=== PATIENT | female | born 1985 | race Caucasian/White ===

== ENCOUNTER 2016-03-26 09:34 | Emergency (ER) | payer MEDICAID, OTHER, SELFPAY ==
[~2016-03-26 09:34] MED LIST: AUGM500T34 PO; MOTR200T44 PO; No medications; PERC5TAB6 PO; vicodin 5/325 PO
[2016-03-26] MEDS ORDERED: predniSONE 20 MG TAB As Ordered ONE (10:40)
[2016-03-26] MEDS ORDERED: IPRATROPIUM 0.5MG/ALBUTEROL 2.5MG INH SOL UD 3ML (DUONEB)(J7620) As Ordered ONE (10:58)
--- NOTE | 2016-03-26 12:32 | REP ---
Chest two views HISTORY: Chest pain Comparison: 12/30/2015 The lungs are clear. The heart is normal in size. The pulmonary vasculature is normal in appearance. The bony structure is intact. IMPRESSION: No acute disease. Signed by Prakash Barroso MD 03/26/2016 12:24 P
[2016-03-26] MEDS ORDERED: AZITHROMYCIN 250 MG TAB As Ordered ONE (12:48)
--- NOTE | 2016-03-26 13:02 | EDDOCDS ---
Physician Documentation [facility] Name: Cielo Ríos Age: 30 yrs Sex: Female : 1985 Arrival Date: 03/26/2016 Time: 09:34 Bed PD Private MD: NO PRIMARY PHYSICIAN, . Disposition: 03/26/16 12:48 Discharged to Home/Self Care. Impression: Acute sinusitis, Acute bronchitis. - Condition is Stable. - Discharge Instructions: Sinusitis, Mokg-nj-Gkom, Acute Bronchitis, Mzjo-uj-Zpol. - Prescriptions for Prednisone 20 mg Oral Tablet - take 3 tablet by ORAL route once daily for 5 days; 15 tablet. Claritin 10 mg Oral Tablet - take 1 tablet by ORAL route once daily As needed; 30 tablet. Zithromax 250 mg Oral Tablet - take 1 tablet by ORAL route once daily start tomorrow; 4 tablet. Mucinex 600 mg - take 1 tablet by ORAL route 2 times per day; 30 tablet. Albuterol Sulfate 90 mcg/actuation Inhalation HFA Aerosol Inhaler - inhale 2 puff by INHALATION route every 4 hours As needed; 1 Inhaler. - Medication Reconciliation, Local Pharmacy Hours form. - [facility] ; When: 1 - 2 days; Reason: Recheck today's complaints, Continuance of care. Follow up: Emergency Department; Reason: Worsening of conditions. - Problem is new. - Symptoms have improved. Historical: - Allergies: no known allergies; - Home Meds: 1. Paxil 10 mg Oral tab 1 tab once daily 2. Xanax 0.25 mg Oral tab prn - PMHx: Anxiety; Endometriosis; - PSHx: Hysterectomy; Appendectomy; Laparoscopy; - Social history: Smoking status: Patient uses tobacco products, light tobacco smoker. No barriers to communication noted, The patient speaks fluent Yakut, Speaks appropriately for age. - Family history: Not pertinent. - : The pt / caregiver states he / she is not on anticoagulants. Home medication list is obtained from the patient. - Exposure Risk Screening:: None identified. 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 6 in. (167.64 cm); Pain 7/10; 12:52 BP 140 / 80; Pulse 81; Resp 18; Temp 98.3; Pulse Ox 97% ; Pain 5/10; cmb 09:38 Body Mass Index 29.05 (81.65 kg, 167.64 cm) elp MDM: 10:39 Albuterol-Ipratropium 1 neb Nebulizer every 20 minutes x3 ordered. ef1 10:39 Call Respiratory ordered. ef1 10:39 predniSONE 60 mg PO once; administer with food or milk ordered. ef1 10:40 Call Respiratory complete. [facility] 10:40 Chest, 2 View (pa\E\lat) Ordered. EDMS 10:45 Financial registration complete. 11:02 [facility] Payment Agreement was scanned into [email or web address] and attached to record. lg 12:46 azithromycin 500 mg PO once ordered. ef1 12:46 Recheck B/P ordered. ef1 Administered Medications: 10:42 Drug: predniSONE 60 mg [prednisone 20 mg tablet (3 tabs)] Route: PO; [facility] 11:03 Drug: Albuterol-Ipratropium 1 neb [ipratropium-albuterol 0.5 mg-3 mg(2.5 mg base)/3 mL cs15 nebulization soln (1 neb)] Route: Nebulizer; 11:40 Drug: Albuterol-Ipratropium 1 neb [ipratropium-albuterol 0.5 mg-3 mg(2.5 mg base)/3 mL cs15 nebulization soln (1 neb)] Route: Nebulizer; 11:41 Drug: Albuterol-Ipratropium 1 neb [ipratropium-albuterol 0.5 mg-3 mg(2.5 mg base)/3 mL cs15 nebulization soln (1 neb)] Route: Nebulizer; 12:50 Drug: azithromycin 500 mg [azithromycin 250 mg tablet (2 tabs)] Route: PO; [facility] Signatures: Dispatcher [employer] EDMS Jacqueline Laird RN RN Yony Marcus, Eliu Reg lg Ras Espinosa RN RN mlb1 Caitlyn Alvarez, PA-C PA-C ef1 Nathaniel Ojeda RT cs15 The chart was reviewed and I authenticate all verbal orders and agree with the evaluation and treatment provided.Attachments: 11:02 [facility] Payment Agreement lg MTDD
--- NOTE | 2016-03-26 13:02 | EDDOCDS ---
Nurse's Notes [facility] Name: Cielo Ríos Age: 30 yrs Sex: Female : 1985 Arrival Date: 03/26/2016 Time: 09:34 Bed PD Private MD: NO PRIMARY PHYSICIAN, . Diagnosis: Acute sinusitis;Acute bronchitis Presentation: 03/26 09:49 Presenting complaint: Patient states: Bilateral chest pain began a week ago, worse with mlb1 deep breathing and "lying down". Aspirin was not taken prior to arrival. Adult Sepsis Screening: The patient does not have new or worsening altered mentation. Patient's respiratory rate is less than 22. Systolic blood pressure is greater than 100. Patient has a qSOFA score of 0- Negative Sepsis Screen. Suicide/Homicide risk assessment- the patient denies having any suicidal and/or homicidal ideations and does not present with any other emotional, behavioral or mental health complaints. 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 Transition of care: patient was not received from another setting of care. 09:49 Acuity: MONICA Level 3 mlb1 09:49 Method Of Arrival: Walkin/Carried/Asstd mlb1 Triage Assessment: 09:51 General: Appears in no apparent distress, Behavior is anxious, appropriate for age, mlb1 cooperative. Pain: Location: chest Pain currently is 7 out of 10 on a pain scale. HIV screening NA for this visit Offered previously. 13:00 Cardiovascular: Chest pain is described as diffuse, radiates Does not radiate. episodes mcp are intermittent began week ago. 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 Paxil 10 mg Oral tab 1 tab once daily 2. Xanax 0.25 mg Oral tab prn - PMHx: Anxiety; Endometriosis; - PSHx: Hysterectomy; Appendectomy; Laparoscopy; - Social history: Smoking status: Patient uses tobacco products, light tobacco smoker. No barriers to communication noted, The patient speaks fluent Wolof, Speaks appropriately for age. - Family history: Not pertinent. - : The pt / caregiver states he / she is not on anticoagulants. Home medication list is obtained from the patient. - Exposure Risk Screening:: None identified. Screenin:58 Screening information is obtained from the patient. Fall risk: No risks identified. mcp Assistance ADL's: requires no assistance with activities of daily living. Abuse/DV Screen: The patient / caregiver reports he/she is: not in a situation that causes fear, pain or injury. Nutritional screening: No deficits noted. Advance Directives: There is no active DNR order. home support is adequate. Assessment: 12:57 General: Appears in no apparent distress, Behavior is cooperative. Pain: Location: mcp chest with cough or deep breath Pain currently is 4 out of 10 on a pain scale. Neurological: No deficits noted. Cardiovascular: Rhythm is regular. Respiratory: Airway is patent Respiratory effort is even, unlabored, Reports cough that is persistent pain with respiration. Derm: Skin is pink, warm & dry. Vital Signs: 09:38 BP 163 / 88; Pulse 95; Resp 18; Temp 97.1; Pulse Ox 99% ; Weight 81.65 kg; Height 5 ft. elp 6 in. (167.64 cm); Pain 7/10; 12:52 BP 140 / 80; Pulse 81; Resp 18; Temp 98.3; Pulse Ox 97% ; Pain 5/10; cmb 09:38 Body Mass Index 29.05 (81.65 kg, 167.64 cm) elp Vitals: 09:38 Log In Time: March 26, 2016 at 09:30. [facility] ED Course: 09:37 Patient visited by Marina Simms PCA. elp 09:37 Patient moved to Waiting elp 09:38 Alessandra Diaz is Private Physician. elp 09:38 NO PRIMARY PHYSICIAN, . is Private Physician. elp 09:39 Patient visited by Marina Simms PCA. elp 09:39 Patient moved to Pre RCE elp 09:48 Patient visited by Ras Espinosa, RN. mlb1 09:50 Triage Initiated mlb1 09:51 Patient visited by Ras Espinosa, RN. mlb1 10:04 EKG done. (by ED staff). Reviewed by Sayra Haley MD. nb2 10:05 Patient visited by Vianey Jhaveri. nb2 10:09 Patient moved to Triage 1 mcp 10:29 [facility]ait[facility]varez [facility]. ef1 10:29 Sayra Haley MD is Attending Physician. ef1 10:29 Patient visited by Caitlyn Alvarez PA-C. ef1 10:40 Patient moved to mcp 11:01 Patient name changed from Cielo\\S\\Anthony\\S\\Mikulak\\S\\ to Cielo\\S\\M\\S\\Mikulak. EDMS 11:02 COUNTS INCLUDE 234 BEDS AT THE [facility] Payment Agreement was scanned into [employer] and attached to record. lg 11:13 Patient visited by Caitlyn Alvarez PA-C. ef1 11:32 Patient visited by Caitlyn Alvarez PA-C. ef1 12:17 Patient visited by Caitlyn Alvarez PA-C. ef1 12:43 Chest, 2 View (pa\\E\\lat) Returned. EDMS 12:45 Patient visited by Caitlyn Alvarez PA-C. ef1 12:48 [facility] is Referral Physician. ef1 13:00 No IV's were initiated during this patient's visit. No procedures done that require mcp assistance. 13:01 The patient / caregiver is instructed regarding the plan of care and ED course. Cardiac mcp monitoring not applicable on this patient. Administered Medications: 10:42 Drug: predniSONE 60 mg [prednisone 20 mg tablet (3 tabs)] Route: PO; mcp 11:03 Drug: Albuterol-Ipratropium 1 neb [ipratropium-albuterol 0.5 mg-3 mg(2.5 mg base)/3 mL cs15 nebulization soln (1 neb)] Route: Nebulizer; 11:40 Drug: Albuterol-Ipratropium 1 neb [ipratropium-albuterol 0.5 mg-3 mg(2.5 mg base)/3 mL cs15 nebulization soln (1 neb)] Route: Nebulizer; 11:41 Drug: Albuterol-Ipratropium 1 neb [ipratropium-albuterol 0.5 mg-3 mg(2.5 mg base)/3 mL cs15 nebulization soln (1 neb)] Route: Nebulizer; 12:50 Drug: azithromycin 500 mg [azithromycin 250 mg tablet (2 tabs)] Route: PO; mcp RT: 11:03 Initial Med Neb Given as ordered. Respiratory: Respiratory effort is unlabored, cs15 Respiratory pattern is regular Breath sounds are diminished bilaterally. Reports shortness of breath chest pain that has worsened over the last week. She thinks that maybe her anxiety and induced or worsened the chest pain. She takes no meds for breathing at home. She stated that she had exercise induced asthma as a child. 11:43 Subsequent Med Neb Given as ordered. cs15 11:52 Respiratory: Breath sounds are diminished in left posterior lower lobe. cs15 Order Results: Radiology Order: Chest, 2 View (pa\\E\\lat) Test: Chest, 2 View (pa\\E\\lat) REASON FOR EXAMINATION: Cough;Chest Pain; Chest two views; ; HISTORY: Chest pain; ; Comparison: 12/30/2015; ; The lungs are clear. The heart is normal in size. The pulmonary vasculature is; normal in appearance. The bony structure is intact.; ; IMPRESSION: No acute disease.; ; ; Signed by; Prakash Barroso MD 03/26/2016 12:24 P; Outcome: 12:48 Discharge ordered by Provider. ef1 13:00 Discharge Assessment: patient administered narcotics - no. The following High Risk [facility] Discharge criteria are identified: None. Discharged to home ambulatory, with significant other. Condition: stable. Discharge instructions given to patient, Instructed on discharge instructions, follow up and referral plans. medication usage, Demonstrated understanding of instructions, medications, Pt was receptive of discharge instructions/ teaching. Prescriptions given X 5. No special radiology studies were completed. Property sent home with patient. 13:01 Patient left the ED. [facility] Signatures: Dispatcher [employer] EDMS Jacqueline Laird RN RN mcp Ganter, LoriLee, Ras Felix lg, RN RN mlb1 Caitlyn Alvarez, PA-C PA-C ef1 Aleisha Lopez cmb Marina Simms, SERVICE STATION ATTENDANT SERVICE STATION ATTENDANT elp Nathaniel Ojeda,RT RT cs15 Vianey Jhaveri2 MTDD
--- NOTE | 2016-03-28 14:03 | EDDOCDS ---
Physician Documentation [facility] Name: Cielo Ríos Age: 30 yrs Sex: Female : 1985 Arrival Date: 03/26/2016 Time: 09:34 Bed PD Private MD: NO PRIMARY PHYSICIAN, . Disposition: 03/26/16 12:48 Discharged to Home/Self Care. Impression: Acute sinusitis, Acute bronchitis. - Condition is Stable. - Discharge Instructions: Sinusitis, Pupn-[id number]-Kpgh, Acute Bronchitis, Jddv-eu-Uynb. - Prescriptions for Prednisone 20 mg Oral Tablet - take 3 tablet by ORAL route once daily for 5 days; 15 tablet. Claritin 10 mg Oral Tablet - take 1 tablet by ORAL route once daily As needed; 30 tablet. Zithromax 250 mg Oral Tablet - take 1 tablet by ORAL route once daily start tomorrow; 4 tablet. Mucinex 600 mg - take 1 tablet by ORAL route 2 times per day; 30 tablet. Albuterol Sulfate 90 mcg/actuation Inhalation HFA Aerosol Inhaler - inhale 2 puff by INHALATION route every 4 hours As needed; 1 Inhaler. - Medication Reconciliation, Local Pharmacy Hours form. - [facility] ; When: 1 - 2 days; Reason: Recheck today's complaints, Continuance of care. Follow up: Emergency Department; Reason: Worsening of conditions. - Problem is new. - Symptoms have improved. Historical: - Allergies: no known allergies; - Home Meds: 1. Paxil 10 mg Oral tab 1 tab once daily 2. Xanax 0.25 mg Oral tab prn - PMHx: Anxiety; Endometriosis; - PSHx: Hysterectomy; Appendectomy; Laparoscopy; - Social history: Smoking status: Patient uses tobacco products, light tobacco smoker. No barriers to communication noted, The patient speaks fluent Spanish, Speaks appropriately for age. - Family history: Not pertinent. - : The pt / caregiver states he / she is not on anticoagulants. Home medication list is obtained from the patient. - Exposure Risk Screening:: None identified. 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 6 in. (167.64 cm); Pain 7/10; 12:52 BP 140 / 80; Pulse 81; Resp 18; Temp 98.3; Pulse Ox 97% ; Pain 5/10; cmb 09:38 Body Mass Index 29.05 (81.65 kg, 167.64 cm) elp MDM: 10:39 Albuterol-Ipratropium 1 neb Nebulizer every 20 minutes x3 ordered. ef1 10:39 Call Respiratory ordered. ef1 10:39 predniSONE 60 mg PO once; administer with food or milk ordered. ef1 10:40 Call Respiratory complete. mcp 10:40 Chest, 2 View (pa\E\lat) Ordered. EDMS 10:45 Financial registration complete. lg 11:02 [facility] Payment Agreement was scanned into [employer] and attached to record. lg 12:46 azithromycin 500 mg PO once ordered. ef1 12:46 Recheck B/P ordered. ef1 14:05 T-Sheet-- Draft Copy was scanned into [employer] and attached to record. gb 14:06 ECG/EKG was scanned into [employer] and attached to record. gb 14:06 Radiology Report was scanned into [employer] and attached to record. gb 03/28 10:36 ECG WITH READING ER PHYS ordered. EDMS Administered Medications: 03/26 10:42 Drug: predniSONE 60 mg [prednisone 20 mg tablet (3 tabs)] Route: PO; mcp 11:03 Drug: Albuterol-Ipratropium 1 neb [ipratropium-albuterol 0.5 mg-3 mg(2.5 mg base)/3 mL cs15 nebulization soln (1 neb)] Route: Nebulizer; 11:40 Drug: Albuterol-Ipratropium 1 neb [ipratropium-albuterol 0.5 mg-3 mg(2.5 mg base)/3 mL cs15 nebulization soln (1 neb)] Route: Nebulizer; 11:41 Drug: Albuterol-Ipratropium 1 neb [ipratropium-albuterol 0.5 mg-3 mg(2.5 mg base)/3 mL cs15 nebulization soln (1 neb)] Route: Nebulizer; 12:50 Drug: azithromycin 500 mg [azithromycin 250 mg tablet (2 tabs)] Route: PO; mcp Signatures: Dispatcher [employer] Jacqueline Das, RN RN mcp Amanda Damon, Reg Reg gb Yony Bess, Reg Reg lg Ras Espinosa RN RN mlb1 Caitlyn Alvarez, PA-C PA-C ef1 Nathaniel Ojeda RT cs15 The chart was reviewed and I authenticate all verbal orders and agree with the evaluation and treatment provided.Attachments: 11:02 [facility] Payment Agreement lg 14:05 T-Sheet-- Draft Copy gb 14:06 ECG/EKG gb Chart Complete MTDD
--- NOTE | 2016-03-28 14:03 | EDDOCDS ---
Physician Documentation [facility] Name: Cielo Ríos Age: 30 yrs Sex: Female : 1985 Arrival Date: 03/26/2016 Time: 09:34 Bed PD Private MD: NO PRIMARY PHYSICIAN, . Disposition: 03/26/16 12:48 Discharged to Home/Self Care. Impression: Acute sinusitis, Acute bronchitis. - Condition is Stable. - Discharge Instructions: Sinusitis, [id number]-Eirc, Acute Bronchitis, Tgne-[id number]-Viyc. - Prescriptions for Prednisone 20 mg Oral Tablet - take 3 tablet by ORAL route once daily for 5 days; 15 tablet. Claritin 10 mg Oral Tablet - take 1 tablet by ORAL route once daily As needed; 30 tablet. Zithromax 250 mg Oral Tablet - take 1 tablet by ORAL route once daily start tomorrow; 4 tablet. Mucinex 600 mg - take 1 tablet by ORAL route 2 times per day; 30 tablet. Albuterol Sulfate 90 mcg/actuation Inhalation HFA Aerosol Inhaler - inhale 2 puff by INHALATION route every 4 hours As needed; 1 Inhaler. - Medication Reconciliation, Local Pharmacy Hours form. - [facility] ; When: 1 - 2 days; Reason: Recheck today's complaints, Continuance of care. Follow up: Emergency Department; Reason: Worsening of conditions. - Problem is new. - Symptoms have improved. Historical: - Allergies: no known allergies; - Home Meds: 1. Paxil 10 mg Oral tab 1 tab once daily 2. Xanax 0.25 mg Oral tab prn - PMHx: Anxiety; Endometriosis; - PSHx: Hysterectomy; Appendectomy; Laparoscopy; - Social history: Smoking status: Patient uses tobacco products, light tobacco smoker. No barriers to communication noted, The patient speaks fluent Arabic, Speaks appropriately for age. - Family history: Not pertinent. - : The pt / caregiver states he / she is not on anticoagulants. Home medication list is obtained from the patient. - Exposure Risk Screening:: None identified. 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 6 in. (167.64 cm); Pain 7/10; 12:52 BP 140 / 80; Pulse 81; Resp 18; Temp 98.3; Pulse Ox 97% ; Pain 5/10; cmb 09:38 Body Mass Index 29.05 (81.65 kg, 167.64 cm) elp MDM: 10:39 Albuterol-Ipratropium 1 neb Nebulizer every 20 minutes x3 ordered. ef1 10:39 Call Respiratory ordered. ef1 10:39 predniSONE 60 mg PO once; administer with food or milk ordered. ef1 10:40 Call Respiratory complete. mcp 10:40 Chest, 2 View (pa\E\lat) Ordered. EDMS 10:45 Financial registration complete. lg 11:02 [facility] Payment Agreement was scanned into [employer] and attached to record. lg 12:46 azithromycin 500 mg PO once ordered. ef1 12:46 Recheck B/P ordered. ef1 14:05 T-Sheet-- Draft Copy was scanned into [employer] and attached to record. gb 14:06 ECG/EKG was scanned into [employer] and attached to record. gb 14:06 Radiology Report was scanned into [employer] and attached to record. gb 03/28 10:36 ECG WITH READING ER PHYS ordered. EDMS Administered Medications: 03/26 10:42 Drug: predniSONE 60 mg [prednisone 20 mg tablet (3 tabs)] Route: PO; mcp 11:03 Drug: Albuterol-Ipratropium 1 neb [ipratropium-albuterol 0.5 mg-3 mg(2.5 mg base)/3 mL cs15 nebulization soln (1 neb)] Route: Nebulizer; 11:40 Drug: Albuterol-Ipratropium 1 neb [ipratropium-albuterol 0.5 mg-3 mg(2.5 mg base)/3 mL cs15 nebulization soln (1 neb)] Route: Nebulizer; 11:41 Drug: Albuterol-Ipratropium 1 neb [ipratropium-albuterol 0.5 mg-3 mg(2.5 mg base)/3 mL cs15 nebulization soln (1 neb)] Route: Nebulizer; 12:50 Drug: azithromycin 500 mg [azithromycin 250 mg tablet (2 tabs)] Route: PO; mcp Signatures: Dispatcher [employer] Jacqueline Das, RN RN mcp Amanda Damon, Reg Reg gb Yony Bess, Reg Reg lg Ras Espinosa RN RN mlb1 Caitlyn Alvarez, PA-C PA-C ef1 Nathaniel Ojeda RT cs15 The chart was reviewed and I authenticate all verbal orders and agree with the evaluation and treatment provided.Attachments: 11:02 [facility] Payment Agreement lg 14:05 T-Sheet-- Draft Copy gb 14:06 ECG/EKG gb Chart Complete MTDD
--- NOTE | 2016-03-28 14:03 | EDDOCDS ---
Nurse's Notes [facility] Name: Cielo Ríos Age: 30 yrs Sex: Female : 1985 Arrival Date: 03/26/2016 Time: 09:34 Bed PD Private MD: NO PRIMARY PHYSICIAN, . Diagnosis: Acute sinusitis;Acute bronchitis Presentation: 03/26 09:49 Presenting complaint: Patient states: Bilateral chest pain began a week ago, worse with mlb1 deep breathing and "lying down". Aspirin was not taken prior to arrival. Adult Sepsis Screening: The patient does not have new or worsening altered mentation. Patient's respiratory rate is less than 22. Systolic blood pressure is greater than 100. Patient has a qSOFA score of 0- Negative Sepsis Screen. Suicide/Homicide risk assessment- the patient denies having any suicidal and/or homicidal ideations and does not present with any other emotional, behavioral or mental health complaints. 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 Transition of care: patient was not received from another setting of care. 09:49 Acuity: MONICA Level 3 mlb1 09:49 Method Of Arrival: Walkin/Carried/Asstd mlb1 Triage Assessment: 09:51 General: Appears in no apparent distress, Behavior is anxious, appropriate for age, mlb1 cooperative. Pain: Location: chest Pain currently is 7 out of 10 on a pain scale. HIV screening NA for this visit Offered previously. 13:00 Cardiovascular: Chest pain is described as diffuse, radiates Does not radiate. episodes mcp are intermittent began week ago. MANAGER CONTINUOUS IMPROVEMENT: 09:51 LMP N/A - Hysterectomy mlb1 Historical: - Allergies: no known allergies; - Home Meds: 1. Paxil 10 mg Oral tab 1 tab once daily 2. Xanax 0.25 mg Oral tab prn - PMHx: Anxiety; Endometriosis; - PSHx: Hysterectomy; Appendectomy; Laparoscopy; - Social history: Smoking status: Patient uses tobacco products, light tobacco smoker. No barriers to communication noted, The patient speaks fluent Frisian, Speaks appropriately for age. - Family history: Not pertinent. - : The pt / caregiver states he / she is not on anticoagulants. Home medication list is obtained from the patient. - Exposure Risk Screening:: None identified. Screenin:58 Screening information is obtained from the patient. Fall risk: No risks identified. mcp Assistance ADL's: requires no assistance with activities of daily living. Abuse/DV Screen: The patient / caregiver reports he/she is: not in a situation that causes fear, pain or injury. Nutritional screening: No deficits noted. Advance Directives: There is no active DNR order. home support is adequate. Assessment: 12:57 General: Appears in no apparent distress, Behavior is cooperative. Pain: Location: mcp chest with cough or deep breath Pain currently is 4 out of 10 on a pain scale. Neurological: No deficits noted. Cardiovascular: Rhythm is regular. Respiratory: Airway is patent Respiratory effort is even, unlabored, Reports cough that is persistent pain with respiration. Derm: Skin is pink, warm & dry. Vital Signs: 09:38 BP 163 / 88; Pulse 95; Resp 18; Temp 97.1; Pulse Ox 99% ; Weight 81.65 kg; Height 5 ft. elp 6 in. (167.64 cm); Pain 7/10; 12:52 BP 140 / 80; Pulse 81; Resp 18; Temp 98.3; Pulse Ox 97% ; Pain 5/10; cmb 09:38 Body Mass Index 29.05 (81.65 kg, 167.64 cm) elp Vitals: 09:38 Log In Time: March 26, 2016 at 09:30. [facility] ED Course: 09:37 Patient visited by Marina Simms PCA. elp 09:37 Patient moved to Waiting elp 09:38 Alessandra Diaz is Private Physician. elp 09:38 NO PRIMARY PHYSICIAN, . is Private Physician. elp 09:39 Patient visited by Marina Simms PCA. elp 09:39 Patient moved to Pre RCE elp 09:48 Patient visited by Ras Espinosa, RN. mlb1 09:50 Triage Initiated mlb1 09:51 Patient visited by Ras Espinosa, RN. mlb1 10:04 EKG done. (by ED staff). Reviewed by Sayra Haley MD. nb2 10:05 Patient visited by Vianey Jhaveri. nb2 10:09 Patient moved to Triage 1 mcp 10:29 [facility] ef1 10:29 Sayra Haley MD is Attending Physician. ef1 10:29 Patient visited by Caitlyn Alvarez PA-C. ef1 10:40 Patient moved to PD [facility] 11:01 Patient name changed from Cielo\\S\\Anthony\\S\\Mikulak\\S\\ to Cielo\\S\\M\\S\\Mikulak. EDMS 11:02 [facility] Payment Agreement was scanned into [employer] and attached to record. lg 11:13 Patient visited by Caitlyn Alvarez PA-C. ef1 11:32 Patient visited by Caitlyn Alvarez PA-C. ef1 12:17 Patient visited by Caitlyn Alvarez PA-C. ef1 12:43 Chest, 2 View (pa\\E\\lat) Returned. EDMS 12:45 Patient visited by Caitlyn Alvarez PA-C. ef1 12:48 [facility] is Referral Physician. ef1 13:00 No IV's were initiated during this patient's visit. No procedures done that require mcp assistance. 13:01 The patient / caregiver is instructed regarding the plan of care and ED course. Cardiac mcp monitoring not applicable on this patient. 14:05 T-Sheet-- Draft Copy was scanned into [employer] and attached to record. gb 14:06 ECG/EKG was scanned into [employer] and attached to record. gb 14:06 Radiology Report was scanned into [employer] and attached to record. gb Administered Medications: 10:42 Drug: predniSONE 60 mg [prednisone 20 mg tablet (3 tabs)] Route: PO; mcp 11:03 Drug: Albuterol-Ipratropium 1 neb [ipratropium-albuterol 0.5 mg-3 mg(2.5 mg base)/3 mL cs15 nebulization soln (1 neb)] Route: Nebulizer; 11:40 Drug: Albuterol-Ipratropium 1 neb [ipratropium-albuterol 0.5 mg-3 mg(2.5 mg base)/3 mL cs15 nebulization soln (1 neb)] Route: Nebulizer; 11:41 Drug: Albuterol-Ipratropium 1 neb [ipratropium-albuterol 0.5 mg-3 mg(2.5 mg base)/3 mL cs15 nebulization soln (1 neb)] Route: Nebulizer; 12:50 Drug: azithromycin 500 mg [azithromycin 250 mg tablet (2 tabs)] Route: PO; [facility] RT: 11:03 Initial Med Neb Given as ordered. Respiratory: Respiratory effort is unlabored, cs15 Respiratory pattern is regular Breath sounds are diminished bilaterally. Reports shortness of breath chest pain that has worsened over the last week. She thinks that maybe her anxiety and induced or worsened the chest pain. She takes no meds for breathing at home. She stated that she had exercise induced asthma as a child. 11:43 Subsequent Med Neb Given as ordered. cs15 11:52 Respiratory: Breath sounds are diminished in left posterior lower lobe. cs15 Order Results: Radiology Order: Chest, 2 View (pa\\E\\lat) Test: Chest, 2 View (pa\\E\\lat) REASON FOR EXAMINATION: Cough;Chest Pain; Chest two views; ; HISTORY: Chest pain; ; Comparison: 12/30/2015; ; The lungs are clear. The heart is normal in size. The pulmonary vasculature is; normal in appearance. The bony structure is intact.; ; IMPRESSION: No acute disease.; ; ; Signed by; Prakash Barroso MD 03/26/2016 12:24 P; Outcome: 12:48 Discharge ordered by Provider. ef1 13:00 Discharge Assessment: patient administered narcotics - no. The following High Risk [facility] Discharge criteria are identified: None. Discharged to home ambulatory, with significant other. Condition: stable. Discharge instructions given to patient, Instructed on discharge instructions, follow up and referral plans. medication usage, Demonstrated understanding of instructions, medications, Pt was receptive of discharge instructions/ teaching. Prescriptions given X 5. No special radiology studies were completed. Property sent home with patient. 13:01 Patient left the ED. [facility] Signatures: Dispatcher [employer] Jacqueline Das RN RN [facility] Amanda Damon, Reg Reg gb Yony Bess, Reg Reg lg Ras Espinosa RN RN mlb1 Caitlyn Alvarez, PA-C PA-C ef1 Aleisha Lopez cmb Marina Simms, FLAKE DRIER FLAKE DRIER helenp Nathaniel Ojeda,RT RT cs15 Vianey Jhaveri2 Chart Complete MTDD
--- NOTE | 2016-03-30 15:25 | ECGEPIP ---
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
== END 2016-03-26 13:01 | disposition home or self-care (01) ==
LOC: M ED 09:34
DX: J01.90 Acute sinusitis, unspecified (principal); J20.9 Acute bronchitis, unspecified; F41.9 Anxiety disorder, unspecified; Z79.899 Other long term (current) drug therapy; F17.210 Nicotine dependence, cigarettes, uncomplicated

== ENCOUNTER → 2017-07-21 | Outpatient (REF) | payer OTHER ==
[2017-07-21 12:51] LABS: BASO # 0.1 10^3/uL (0.0-0.2); BASO % 0.5 % (0.0-1.0); EOS # 0.2 10^3/uL (0.0-0.50); EOS % 2.4 % (0.0-3.0); HEMATOCRIT 40.6 % (36.0-47.0); HEMOGLOBIN 12.9 g/dl (12.0-15.5); IMMATURE GRANULOCYTE % 0.3 % (0-3.0); LYMPH # 2.2 10^3/uL (1.5-4.5); LYMPH % 23.2 % (24.0-44.0); MEAN CORPUSCULAR HEMOGLOBIN 29.9 pg (27.0-33.0); MEAN CORPUSCULAR HGB CONC 31.8 g/dl (32.0-36.5); MEAN CORPUSCULAR VOLUME 94.2 fl (80.0-96.0); MONO # 0.8 10^3/uL (0.0-0.8); MONO % 8.3 % (0.0-5.0); NEUTROPHILS # 6.1 10^3/uL (1.8-7.7); NEUTROPHILS % 65.3 % (36.0-66.0); PLATELET COUNT, AUTOMATED 269 10^3/uL (150-450); RED BLOOD COUNT 4.31 10^6/uL (4.00-5.40); RED CELL DISTRIBUTION WIDTH 12.3 % (11.5-14.5); WHITE BLOOD COUNT 9.4 10^3/uL (4.0-10.0)
[2017-07-21 13:53] LABS: ALBUMIN 3.9 GM/DL (3.2-5.2); ALBUMIN/GLOBULIN RATIO 1.18 (1.00-1.93); ALKALINE PHOSPHATASE 74 U/L (45-117); ALT/SGPT 16 U/L (12-78); ANION GAP 7 MEQ/L (8-16); AST/SGOT 14 U/L (7-37); BILIRUBIN,TOTAL 0.2 MG/DL (0.2-1.0); BLOOD UREA NITROGEN 12 MG/DL (7-18); CALCIUM LEVEL 9.1 MG/DL (8.5-10.1); CARBON DIOXIDE LEVEL 26 MEQ/L (21-32); CHLORIDE LEVEL 109 MEQ/L (98-107); CHOLESTEROL LEVEL 166 MG/DL (<200); CHOLESTEROL RISK RATIO 3.688 (<5); CREATININE FOR GFR 0.84 MG/DL (0.55-1.30); FREE T4 0.81 NG/DL (0.76-1.46); GLOMERULAR FILTRATION RATE > 60.0 (>60); GLUCOSE, FASTING 98 MG/DL (70-100); HDL CHOLESTEROL 45 MG/DL (>40); LDL CHOLESTEROL 98.2 MG/DL (<100); NON-HDL-C 121 MG/DL; POTASSIUM SERUM 4.5 MEQ/L (3.5-5.1); SODIUM LEVEL 142 MEQ/L (136-145); THYROID STIMULATING HORMONE 0.717 uIU/ML (0.358-3.740); TOTAL PROTEIN 7.2 GM/DL (6.4-8.2); TRIGLYCERIDES LEVEL 114 MG/DL (<150)
== END ==
LOC: M SFHCADAM 08:07
DX: F41.9 Anxiety disorder, unspecified (principal); Z78.9 Other specified health status
CPT/HCPCS: 84443

== ENCOUNTER → 2018-12-15 | Outpatient (REF) | payer OTHER ==
[~2018-12-15] MED LIST changes: +PERC5TAB12 PO; -PERC5TAB6 PO
[2018-12-15 19:45] LABS: ALT/SGPT 29 U/L (12-78); BILIRUBIN,TOTAL 0.4 MG/DL (0.2-1.0); BLOOD UREA NITROGEN 15 MG/DL (7-18); CALCIUM LEVEL 9.2 MG/DL (8.5-10.1); CARBON DIOXIDE LEVEL 30 MEQ/L (21-32); CHLORIDE LEVEL 103 MEQ/L (98-107); CREATININE FOR GFR 0.95 MG/DL (0.55-1.30); FREE T4 0.95 NG/DL (0.76-1.46); GLOMERULAR FILTRATION RATE > 60.0 (>60); GLUCOSE, FASTING 76 MG/DL (70-100); POTASSIUM SERUM 4.2 MEQ/L (3.5-5.1); SODIUM LEVEL 138 MEQ/L (136-145); TOTAL PROTEIN 7.4 GM/DL (6.4-8.2)
== END ==
LOC: M SFHCADAM 14:46
PROVIDERS: ATTEND Family Medicine
DX: R63.2 Polyphagia (principal)

== ENCOUNTER → 2019-03-16 | Outpatient (CLI) | payer OTHER | LOC: M PLALAB 12:11 | PROVIDERS: ATTEND Nurse Practitioner Women's Health | DX: Z80.0 Family history of malignant neoplasm of digestive organs (principal); Z80.7 Family history of other malignant neoplasms of lymphoid, hematopoietic and related tissues; Z80.49 Family history of malignant neoplasm of other genital organs; Z80.51 Family history of malignant neoplasm of kidney ==

== ENCOUNTER → 2019-05-17 | Outpatient (CLI) | payer OTHER ==
--- NOTE | 2019-05-17 18:49 | REP ---
Clinical: Pelvic pain. Technique: Transabdominal pelvic ultrasound with color evaluation. Findings: Bladder is normal and measures approximately 7.0 x 5.1 x 7.1 cm. The patient is known to be status post hysterectomy. Ovaries are normal in vascularity without torsion. Right ovary measures 3.3 x 1.4 x 1.3 cm. Left ovary measures 4.0 x 3.3 x 2.8 cm and includes 3.7 x 2.5 x 2.6 cm cyst. No pelvic free fluid or adnexal mass lesion. Impression: 1. Prior hysterectomy. Normal right ovary. 2. Presumed dominant follicle in the left ovary. Electronically Signed by Kamaljit Barclay MD 05/17/2019 06:40 P
== END ==
LOC: M WHC 13:19
PROVIDERS: ATTEND Nurse Practitioner Family
DX: R10.2 Pelvic and perineal pain (principal)

== ENCOUNTER → 2019-10-31 | Outpatient (REF) | payer OTHER ==
[2019-10-31 14:20] LABS: BASO # 0.1 10^3/uL (0.0-0.2); BASO % 0.9 % (0.0-1.0); EOS # 0.8 10^3/uL (0.0-0.5); EOS % 8.9 % (0.0-3.0); HEMATOCRIT 41.9 % (36.0-47.0); HEMOGLOBIN 13.2 g/dl (12.0-15.5); LYMPH # 2.6 10^3/uL (1.5-5.0); LYMPH % 30.6 % (24.0-44.0); MEAN CORPUSCULAR HEMOGLOBIN 30.2 pg (27.0-33.0); MEAN CORPUSCULAR HGB CONC 31.5 g/dl (32.0-36.5); MEAN CORPUSCULAR VOLUME 95.9 fl (80.0-96.0); MONO # 0.5 10^3/uL (0.0-0.8); MONO % 5.8 % (0.0-5.0); NEUTROPHILS # 4.6 10^3/uL (1.5-8.5); NEUTROPHILS % 53.4 % (36.0-66.0); PLATELET COUNT, AUTOMATED 276 10^3/uL (150-450); RED BLOOD COUNT 4.37 10^6/uL (4.00-5.40); WHITE BLOOD COUNT 8.6 10^3/uL (4.0-10.0)
[2019-10-31 14:59] LABS: ALBUMIN 3.8 GM/DL (3.2-5.2); ALT/SGPT 17 U/L (12-78); BILIRUBIN,TOTAL 0.4 MG/DL (0.2-1.0); BLOOD UREA NITROGEN 16 MG/DL (7-18); CALCIUM LEVEL 9.2 MG/DL (8.5-10.1); CARBON DIOXIDE LEVEL 28 MEQ/L (21-32); CHLORIDE LEVEL 107 MEQ/L (98-107); CHOLESTEROL LEVEL 210 MG/DL (<200); CREATININE FOR GFR 0.88 MG/DL (0.55-1.30); FREE T4 0.79 NG/DL (0.76-1.46); GLOMERULAR FILTRATION RATE > 60.0 (>60); GLUCOSE, FASTING 92 MG/DL (70-100); HDL CHOLESTEROL 50 MG/DL (>40); LDL CHOLESTEROL 137 MG/DL (<100); NON-HDL-C 160 MG/DL; POTASSIUM SERUM 4.6 MEQ/L (3.5-5.1); SODIUM LEVEL 140 MEQ/L (136-145); THYROID STIMULATING HORMONE 0.465 uIU/ML (0.358-3.740); TOTAL PROTEIN 7.1 GM/DL (6.4-8.2); TRIGLYCERIDES LEVEL 117 MG/DL (<150)
== END ==
LOC: M LABDRWAD 08:06
PROVIDERS: ATTEND Family Medicine
DX: F41.9 Anxiety disorder, unspecified (principal); R09.81 Nasal congestion; Z00.00 Encounter for general adult medical examination without abnormal findings

== ENCOUNTER → 2020-05-02 | Outpatient (REF) | payer OTHER ==
[2020-05-02 13:51] LABS: FREE T4 0.85 NG/DL (0.76-1.46); THYROID STIMULATING HORMONE 0.506 uIU/ML (0.358-3.740)
== END ==
LOC: M SFHCADAM 10:10
PROVIDERS: ATTEND Family Medicine
DX: F32.9 Major depressive disorder, single episode, unspecified (principal)

== ENCOUNTER → 2022-01-01 | Outpatient (REF) | payer OTHER ==
[2022-01-01 13:08] LABS: BASO # 0.1 10^3/uL (0.0-0.2); BASO % 1.1 % (0.0-1.0); EOS # 0.1 10^3/uL (0.0-0.5); EOS % 2.3 % (0.0-3.0); HEMATOCRIT 43.2 % (36.0-47.0); HEMOGLOBIN 13.6 g/dl (12.0-15.5); LYMPH % 34.3 % (24.0-44.0); MEAN CORPUSCULAR HEMOGLOBIN 30.4 pg (27.0-33.0); MEAN CORPUSCULAR HGB CONC 31.5 g/dl (32.0-36.5); MEAN CORPUSCULAR VOLUME 96.6 fl (80.0-96.0); MONO # 0.4 10^3/uL (0.0-0.8); MONO % 6.5 % (2.0-8.0); NEUTROPHILS # 3.2 10^3/uL (1.5-8.5); NEUTROPHILS % 55.6 % (36.0-66.0); PLATELET COUNT, AUTOMATED 300 10^3/uL (150-450); RED BLOOD COUNT 4.47 10^6/uL (4.00-5.40); WHITE BLOOD COUNT 5.7 10^3/uL (4.0-10.0)
[2022-01-01 14:21] LABS: ALBUMIN 4.1 GM/DL (3.2-5.2); ALT/SGPT 17 U/L (12-78); BILIRUBIN,TOTAL 0.6 MG/DL (0.2-1.0); BLOOD UREA NITROGEN 10 MG/DL (7-18); CALCIUM LEVEL 9.9 MG/DL (8.5-10.1); CARBON DIOXIDE LEVEL 28 MEQ/L (21-32); CHLORIDE LEVEL 104 MEQ/L (98-107); CHOLESTEROL LEVEL 194 MG/DL (<200); CHOLESTEROL RISK RATIO 2.939 (<5); CREATININE FOR GFR 0.99 MG/DL (0.55-1.30); GLOMERULAR FILTRATION RATE > 60.0 (>60); GLUCOSE, FASTING 95 MG/DL (70-100); HDL CHOLESTEROL 66 MG/DL (>40); LDL CHOLESTEROL 112 MG/DL (<100); NON-HDL-C 128 MG/DL; SODIUM LEVEL 138 MEQ/L (136-145); TOTAL PROTEIN 7.2 GM/DL (6.4-8.2); TRIGLYCERIDES LEVEL 82 MG/DL (<150)
[2022-01-01 15:45] LABS: GC DNA AMPLIFICATION NEGATIVE (NEGATIVE)
== END ==
LOC: M SFHCADAM 07:36
PROVIDERS: ATTEND Family Medicine
DX: Z00.00 Encounter for general adult medical examination without abnormal findings (principal); N89.8 Other specified noninflammatory disorders of vagina